=== PATIENT | female | born 1980 | race Caucasian/White ===

== ENCOUNTER 2021-06-11 09:23 | Emergency (ER) | payer OTHER ==
[2021-06-11 10:01] VITALS: BP 123/74; PULSE 68; TEMP 97.6; BMI 44.6
[2021-06-11] MEDS ORDERED: LIDOCAINE 5% TOPICAL PATCH TP ONE (11:27)
[2021-06-11] MEDS ORDERED: METHOCARBAMOL 500 MG TABLET PO ONE (11:27)
[2021-06-11] MEDS ORDERED: KETOROLAC TROMETHAMINE 60 MG/2 ML VIAL IM ONE (11:27)
[2021-06-11] MEDS ORDERED: LIDOCAINE 5% TOPICAL PATCH ONE (11:29)
[2021-06-11] MEDS ORDERED: KETOROLAC TROMETHAMINE 30 MG/1 ML VIAL ONE (11:29)
[2021-06-11] MEDS ORDERED: METHOCARBAMOL 500 MG TABLET ONE (11:29)
[2021-06-11] MEDS ORDERED: LIDOCAINE PATCH REMOVAL MC SCH (22:00)
== END 2021-06-11 12:43 | disposition home or self-care (01) ==
LOC: JERFT 09:23
PROC: 3E023GC Introduction of Other Therapeutic Substance into Muscle, Percutaneous Approach (ICD-10-PCS; principal; 2021-06-11)
DX: M54.32 Sciatica, left side (principal)
CPT/HCPCS: 99284-25

== ENCOUNTER 2024-05-03 15:29 | Observation (INO) | payer OTHER ==
[2024-05-03 15:59] VITALS: BMI 45.7
[2024-05-03] MEDS ORDERED: METHOCARBAMOL 500 MG TABLET ONE (16:16)
[2024-05-03] MEDS ORDERED: ACETAMINOPHEN 325 MG TABLET (FP) ONE (16:16)
[2024-05-03] MEDS: ACETAMINOPHEN 325 MG TABLET (FP) PO ONE (16:30)
[2024-05-03] MEDS: METHOCARBAMOL 500 MG TABLET PO ONE (16:46)
[2024-05-03] MEDS ORDERED: KETOROLAC TROMETHAMINE 30 MG/1 ML VIAL ONE (17:25)
[2024-05-03] MEDS ORDERED: diazePAM 5 MG TABLET ONE (17:25)
[2024-05-03] MEDS: KETOROLAC TROMETHAMINE 30 MG/1 ML VIAL IM ONE (17:34)
[2024-05-03] MEDS: diazePAM 5 MG TABLET PO ONE (17:34)
[2024-05-03] MEDS: IBUPROFEN 400 MG TABLET (FP) PO ONE (17:34)
[2024-05-03 18:03] LABS: HIV INTERPRETATION NEGATIVE (NEGATIVE)
[2024-05-03] MEDS ORDERED: oxyCODONE HCL 5 MG TABLET ONE (21:22)
[2024-05-03] MEDS ORDERED: LIDOCAINE 4% PATCH TP ONE (21:22)
[2024-05-03] MEDS: LIDOCAINE 4% PATCH TP ONE (21:34)
[2024-05-03] MEDS: oxyCODONE HCL 5 MG TABLET PO ONE (21:34)
[2024-05-03 22:00] LABS: BASO % 0.7 % (0-2.0); EOS % 3.5 % (0-4.5); HEMATOCRIT 38.5 % (32.4-45.2); HEMOGLOBIN 13.1 GM/dL (10.7-15.3); LYMPH % 24.5 % (8-40); MCH 28.8 pg (25.7-33.7); MCHC 33.9 g/dl (32.0-36.0); MEAN CELL VOLUME 84.7 fl (80-96); MEAN PLT VOLUME 7.7 fl (7.5-11.1); MONO % 7.8 % (3.8-10.2); NEUT % 63.5 % (42.8-82.8); PLATELET COUNT 284 10^3/uL (134-434); RBC 4.54 M/mm3 (3.60-5.2); RDW 14.7 % (11.6-15.6); WHITE BLOOD COUNT 9.8 K/mm3 (4.0-10.0)
[2024-05-03] MEDS: LIDOCAINE PATCH REMOVAL MC SCH (22:05)
[2024-05-03 22:30] LABS: POTASSIUM 4.5 mmol/L (3.5-5.1)
[2024-05-03 22:32] LABS: CALCIUM 8.8 mg/dL (8.5-10.1)
[2024-05-03 22:33] LABS: ALBUMIN 3.6 g/dl (3.4-5.0); BLOOD UREA NITROGEN 14.9 mg/dL (7-18)
[2024-05-03 22:38] LABS: BILIRUBIN,TOTAL 0.4 mg/dL (0.2-1); TOT PROT 6.7 g/dl (6.4-8.2)
[2024-05-04] MEDS ORDERED: ACETAMINOPHEN 1000 MG/100 ML BAG IVPB PRN (01:58)
[2024-05-04 02:08] LABS: MAGNESIUM 1.9 mg/dL (1.8-2.4)
[2024-05-04 02:12] LABS: PHOSPHOROUS 3.6 mg/dL (2.5-4.9)
[2024-05-04] MEDS: KETOROLAC TROMETHAMINE 15 MG/ML VIAL IVPUSH SCH (02:14)
[2024-05-04] MEDS: METHOCARBAMOL 500 MG TABLET PO SCH ×2 (05:29→17:19)
[2024-05-04] MEDS ORDERED: IBUPROFEN 400 MG TABLET (FP) PO PRN (09:39)
[2024-05-04] MEDS: LIDOCAINE 5% TOPICAL PATCH TP SCH (11:38)
[2024-05-04] MEDS: PANTOPRAZOLE 20 MG TABLET PO SCH (11:38)
[2024-05-04] MEDS: DOCUSATE SODIUM 100 MG CAPSULE (FP) PO SCH (21:22)
[2024-05-04] MEDS: LIDOCAINE PATCH REMOVAL MC SCH (21:23)
[2024-05-05] MEDS: diphenhydrAMINE HCL 25 MG CAPSULE (FP) PO PRN (16:46)
[2024-05-06] MEDS: ACETAMINOPHEN 1000 MG/100 ML BAG IVPB PRN ×2 (08:00→17:20)
[2024-05-06 08:31] LABS: BASO % 0.5 % (0-2.0); EOS % 4.7 % (0-4.5); HEMATOCRIT 37.8 % (32.4-45.2); HEMOGLOBIN 12.6 GM/dL (10.7-15.3); LYMPH % 22.2 % (8-40); MCH 28.7 pg (25.7-33.7); MCHC 33.3 g/dl (32.0-36.0); MEAN CELL VOLUME 86.1 fl (80-96); MEAN PLT VOLUME 8.2 fl (7.5-11.1); MONO % 7.5 % (3.8-10.2); NEUT % 65.1 % (42.8-82.8); PLATELET COUNT 234 10^3/uL (134-434); RBC 4.39 M/mm3 (3.60-5.2); RDW 14.6 % (11.6-15.6); WHITE BLOOD COUNT 7.7 K/mm3 (4.0-10.0)
[2024-05-06 08:43] LABS: POTASSIUM 4.7 mmol/L (3.5-5.1)
[2024-05-06 08:45] LABS: ALBUMIN 3.2 g/dl (3.4-5.0); BLOOD UREA NITROGEN 14.7 mg/dL (7-18); CALCIUM 8.7 mg/dL (8.5-10.1)
[2024-05-06 08:49] LABS: CREATININE 0.8 mg/dL (0.55-1.3)
[2024-05-06 08:50] LABS: BILIRUBIN,TOTAL 0.4 mg/dL (0.2-1); TOT PROT 5.8 g/dl (6.4-8.2)
[2024-05-09 20:25] VITALS: BP 110/73; PULSE 79; RESP 17; TEMP 98.6
== END 2024-05-09 20:20 ==
LOC: JER 15:29 → JERBED 21:15 → J7W 05-04 01:41
PROVIDERS: ADMIT Internal Medicine; ATTEND Internal Medicine
PROC: 3E033NZ Introduction of Analgesics, Hypnotics, Sedatives into Peripheral Vein, Percutaneous Approach (ICD-10-PCS; principal; 2024-05-03)
PROC: 3E0233Z Introduction of Anti-inflammatory into Muscle, Percutaneous Approach (ICD-10-PCS; 2024-05-03)
DX: M79.604 Pain in right leg (principal); R26.2 Difficulty in walking, not elsewhere classified; M79.651 Pain in right thigh; F17.210 Nicotine dependence, cigarettes, uncomplicated
CPT/HCPCS: 36415; 73502-TC-RT-FY; 73562-TC-RT-FY; 73700-TC-RT; 73720-TC; 80053; 83735; 84100; 85025; 86803; 87389; 96372; 96374; 96376; 97116-GP; 97161-GP; 99285-25; G0378; J0131